=== PATIENT | female | born 1980 | race Caucasian/White ===

== ENCOUNTER 2017-08-15 19:24 | Emergency (ER) | payer OTHER ==
[~2017-08-15] VITALS: Ht 154.9 cm; Wt 62.2 kg
[~2017-08-15 19:24] MED LIST: IBUP800T23 PO; METH750T2 PO; PRIS100T PO; SYNT100T OR
[2017-08-15 19:44] VITALS: BP 129/68; PULSE 100; RESP 18; TEMP 99.1; O2SAT 100
[2017-08-15] MEDS ORDERED: KETOROLAC TROMETHAMINE 30 MG/ML (IVP) VIAL IV PUSH ONE (22:15)
[2017-08-15 22:27] LABS: BILIRUBIN, URINE NEG (NEG); BLOOD, URINE MOD (NEG); GLUCOSE,URINE NEG (NEG); KETONE, URINE NEG (NEG); NITRITE,URINE NEG (NEG); URINE COLOR YELLOW (YELLW/STRAW); URINE LEUKOCYTE ESTERASE NEG (NEG)
--- NOTE | 2017-08-15 22:27 | PD ---
HPI Chief Complaint: Dispatcher Automobile Rental Problem/Complaint Time Seen by Provider: 21:54 Travel History International Travel<30 days: No Contact w/Intl Traveler<30days: No Traveled to known affect area: No History of Present Illness HPI The patient is a 37-year-old female who presents to the emergency department for left groin pain. The patient states she developed left groin pain last Friday. The pain is located in the left inguinal canal, occasionally radiates to the anterior aspect of the thigh, is present at rest as well as activity. She denies any known injury to the affected area, does have pain with certain movements such as flexion of the hip and rotation of the hip, however, notes pain is present at rest. She denies any nausea, vomiting, diarrhea, or abdominal pain. Denies any associated pelvic pain except for the left inguinal pain. She denies any radiation of the pain past the mid left thigh. She is currently on her menstrual cycle, has had previous tubal ligation, denies . Symptoms are moderate. She has been taking [id number] ibuprofen as needed for pain. PFSH Past Medical History Cancer: No Cardiovascular Problems: Yes (HTN) High Cholesterol: Yes Chest Pain: Yes Diminished Hearing: No Endocrine: Yes Gastrointestinal Disorders: No Genitourinary: No Hypertension: Yes Immune Disorder: Yes Implanted Vascular Access Dvce: No Musculoskeletal: No Neurologic: No Psychiatric: No Reproductive: No Respiratory: No Immunizations Current: No Myocardial Infarction: Yes (2012 after ) Thyroid Disease: Yes (HYPOTHYROIDISM) LMP: 08/15/17 : 1 Para: 1 Tubal Ligation: Yes Past Surgical History Section: Yes (09/30/10) Other Surgery: Yes () Social History Alcohol Use: No Tobacco Use: No Substance Use: No Allergies-Medications (Allergen,Severity, Reaction): Coded Allergies: Sulfa (Sulfonamide Antibiotics) (Unverified Allergy, Severe, Rash, 08/15/17 ) fire ant (Verified Allergy, Severe, 08/15/17) Reported Meds & Prescriptions Reported Meds & Active Scripts Active Robaxin (Methocarbamol) 750 Mg Tab 750 Mg PO Q6HR Anaprox DS (Naproxen Sodium) 550 Mg Tab 550 Mg PO Q12HR PRN Reported Ibuprofen 800 Mg Tab 800 Mg PO Q6HR PRN Synthroid (Levothyroxine Sodium) 175 Mcg Tab 175 Mcg PO DAILY Aspirin Low Dose (Aspirin) 81 Mg Chew 81 Mg CHEW DAILY Pristiq 24 HR (Desvenlafaxine ER 24 HR) 100 Mg Tab 100 Mg PO DAILY Review of Systems Except as stated in HPI: all other systems reviewed are Neg General / Constitutional: No: Fever Gastrointestinal: No: Nausea, Vomiting, Diarrhea, Abdominal Pain, Constipation , Changes in Bowel Habits Genitourinary: Positive: Vaginal Bleeding (Currently on her menstrual cycle), No: Dysuria, Pelvic Pain, Flank Pain, Discharge Musculoskeletal: Positive: Pain Neurologic: No: Paresthesia, Sensory Disturbance Physical Exam Narrative GENERAL: Awake, alert, pleasant 37-year-old female who appears her stated age and is in no acute respiratory distress. SKIN: Focused skin assessment warm/dry. HEAD: Atraumatic. Normocephalic. EYES: No injection or drainage. GASTROINTESTINAL: Abdomen soft, non-tender, nondistended. No rebound tenderness. Back: No CVA tenderness MUSCULOSKELETAL: Exam was performed in the presence of a female nurse. Positive bilateral femoral pulses. Flexion of the hip and rotation internal and external of the left hip does not reproduce symptoms. There is no obvious left femoral hernia. NEUROLOGICAL: Awake and alert. No obvious cranial nerve deficits. Motor grossly within normal limits. Normal speech. PSYCHIATRIC: Appropriate mood and affect; insight and judgment normal. Data Data Last Documented VS Vital Signs Date Time Temp Pulse Resp B/P (MAP) Pulse Ox O2 Delivery O2 Flow Rate FiO2 08/16/17 00:40 86 18 99/62 (74) 98 08/15/17 19:[address] Pelvis W/O Iv Contrast (08/15/17 ) Urinalysis - C+S If Indicated (08/15/17 22:03) Ed Urine Pregnancytest Poc (08/15/17 22:03) Ketorolac Inj (Toradol Inj) (08/15/17 22:15) Ed Discharge Order (08/16/17 00:17) Labs Laboratory Tests Test 08/15/17 22:20 Urine Color YELLOW Urine Turbidity CLEAR Urine pH 6.0 Urine Specific [place] LESS/EQUAL 1.005 Urine Protein NEG mg/dL Urine Glucose (UA) NEG mg/dL Urine Ketones NEG mg/dL Urine Occult Blood MOD Urine Nitrite NEG Urine Bilirubin NEG Urine Urobilinogen 0.2 MG/DL Urine Leukocyte Esterase NEG Urine RBC 10-14 /hpf Urine WBC 0-2 /hpf Urine Squamous Epithelial Cells 0-5 /hpf Urine Bacteria NONE /hpf Microscopic Urinalysis Comment CULT NOT INDICATED MDM Medical Decision Making Medical Screen Exam Complete: Yes Emergency Medical Condition: Yes Medical Record Reviewed: Yes Interpretation(s) Laboratory Tests Test 08/15/17 22:20 Urine Color YELLOW Urine Turbidity CLEAR Urine pH 6.0 Urine Specific [place] LESS/EQUAL 1.005 Urine Protein NEG mg/dL Urine Glucose (UA) NEG mg/dL Urine Ketones NEG mg/dL Urine Occult Blood MOD Urine Nitrite NEG Urine Bilirubin NEG Urine Urobilinogen 0.2 MG/DL Urine Leukocyte Esterase NEG Urine RBC 10-14 /hpf Urine WBC 0-2 /hpf Urine Squamous Epithelial Cells 0-5 /hpf Urine Bacteria NONE /hpf Microscopic Urinalysis Comment CULT NOT INDICATED Differential Diagnosis Differential diagnosis includes radiculopathy, neuropathy, femoral hernia, pyelonephritis, nephrolithiasis, inguinal strain, inguinal ligament strain, musculoskeletal pain. Narrative Course The patient was administered Toradol 30 mg intravenously for pain. Noncontrast CT of the pelvis was performed. Bedside UA test was obtained, was negative. The patient was signed out to Dr. Retana at [address] of the pelvis pending. Diagnosis Primary Impression: Left inguinal pain Scripts Methocarbamol (Robaxin) 750 Mg Tab 750 MG PO Q6HR for Muscle Spasm, #12 TAB 0 Refills Prov: Yajaira Retana MD 08/16/17 Naproxen Sodium DS (Anaprox DS) 550 Mg Tab 550 MG PO Q12HR Y for PAIN GREATER THAN 5, #12 TAB 0 Refills Prov: Yajaira Retana MD 08/16/17 Condition: Stable Dale Redd MD Aug 15, 2017 22:27
[2017-08-15 22:33] LABS: SQUAMOUS EPITHELIAL CELL URINE 0-5 /hpf (0-5); WBC, URINE 0-2 /hpf (0-5)
--- NOTE | 2017-08-15 23:14 | RADRPT ---
EXAM DATE/TIME: 08/15/2017 22:49 [facility] COMPARISON: No previous studies available for comparison. INDICATIONS : Left groin pain. ORAL CONTRAST: No oral contrast ingested. RADIATION DOSE: 10.07 CTDIvol (mGy) MEDICAL HISTORY : Hypertension. SURGICAL HISTORY : Tubal ligation. section. ENCOUNTER: Initial ACUITY: 2 days PAIN SCALE: 10/10 LOCATION: Left groin. TECHNIQUE: Volumetric scanning of the pelvis was performed. Using automated exposure control and adjustment of the mA and/or kV according to patient size, radiation dose was kept as low as reasonably achievable t o obtain optimal diagnostic quality images. DICOM format image data is available electronically for review and comparison. FINDINGS: BOWEL/MESENTERY: The visualized small and large bowel demonstrate no acute abnormality. There is no free fluid. BLADDER: There is no wall thickening or mass. RETROPERITONEUM: There is no aneurysm or lymphadenopathy. REPRODUCTIVE: Within normal limits. INGUINAL: There is no lymphadenopathy or hernia. MUSCULOSKELETAL: Within normal limits for patient age. CONCLUSION: Unremarkable exam with no evidence of hernia or mass. Scott Donohue MD on August 15, 2017 at 23:11 Board Certified Radiologist. This report was verified electronically.
[2017-08-15] MEDS ORDERED: IBUP1TAB7 PO (23:28)
[2017-08-15] MEDS ORDERED: ASPI81CH6 CHEW (23:28)
[2017-08-15] MEDS ORDERED: SYNT175T PO (23:28)
[2017-08-15] MEDS ORDERED: PRIS100T PO (23:28)
[2017-08-15 23:29] VITALS: RESP 18
--- NOTE | 2017-08-15 23:41 | PD ---
Physical Exam Date Seen by Provider: Aug 15, 2017 Time Seen by Provider: 23:40 Narrative GENERAL: Well-developed well-nourished female no acute distress or respiratory distress SKIN: Warm and dry. Data Data Last Documented VS Vital Signs Date Time Temp Pulse Resp B/P (MAP) Pulse Ox O2 Delivery O2 Flow Rate FiO2 08/15/17 23:29 18 08/15/17 19:44 99.1 100 129/68 (88) [address] Pelvis W/O Iv Contrast (08/15/17 ) Urinalysis - C+S If Indicated (08/15/17 22:03) Ed Urine Pregnancytest Poc (08/15/17 22:03) Ketorolac Inj (Toradol Inj) (08/15/17 22:15) Ed Discharge Order (08/16/17 00:17) Labs Laboratory Tests Test 08/15/17 22:20 Urine Color YELLOW Urine Turbidity CLEAR Urine pH 6.0 Urine Specific [place] LESS/EQUAL 1.005 Urine Protein NEG mg/dL Urine Glucose (UA) NEG mg/dL Urine Ketones NEG mg/dL Urine Occult Blood MOD Urine Nitrite NEG Urine Bilirubin NEG Urine Urobilinogen 0.2 MG/DL Urine Leukocyte Esterase NEG Urine RBC 10-14 /hpf Urine WBC 0-2 /hpf Urine Squamous Epithelial Cells 0-5 /hpf Urine Bacteria NONE /hpf Microscopic Urinalysis Comment CULT NOT INDICATED MDM Medical Record Reviewed: Yes Supervised Visit with LUIS: No Interpretation(s) PELVIC CT: CONCLUSION: Unremarkable exam with no evidence of hernia or mass. Scott Donohue MD on August 15, 2017 at 23:11 Board Certified Radiologist. This report was verified electronically. Diagnosis Primary Impression: Left inguinal pain Referrals: [facility] call for appointment Primary Care Physician call for appointment Patient Instructions: General Instructions Additional Instruction: Follow-up with your primary care provider and equipment man Take medications as prescribed Return to the emergency department for any concerns or change in condition Med/Other Pt SpecificInfo: Prescription(s) given Scripts Methocarbamol (Robaxin) 750 Mg Tab 750 MG PO Q6HR for Muscle Spasm, #12 TAB 0 Refills Prov: Yajaira Retana MD 08/16/17 Naproxen Sodium DS (Anaprox DS) 550 Mg Tab 550 MG PO Q12HR Y for PAIN GREATER THAN 5, #12 TAB 0 Refills Prov: Yajaira Retana MD 08/16/17 Disposition: 01 DISCHARGE HOME Condition: Stable Yajaira Retana MD Aug 15, 2017 23:41
[2017-08-16] MEDS ORDERED: NAPR5TAB5 PO (00:19)
[2017-08-16] MEDS ORDERED: ROBA750T PO (00:19)
[2017-08-16 00:40] VITALS: BP 99/62
== END 2017-08-16 00:39 | disposition home or self-care (01) ==
LOC: PHED 19:24
DX: R10.32 Left lower quadrant pain (principal); I10 Essential (primary) hypertension; E03.9 Hypothyroidism, unspecified; E78.00 Pure hypercholesterolemia, unspecified; I25.2 Old myocardial infarction
CPT/HCPCS: 72192; 81001; 84703; 96374; 99284; J1885